=== PATIENT | female | born 1940 | race Caucasian/White ===

== ENCOUNTER 2018-10-27 19:58 | Emergency (ER) | payer OTHER ==
[~2018-10-27] VITALS: Ht 162.6 cm; Wt 85.3 kg
[2018-10-27 20:01] VITALS: Ht 162.6 cm; Wt 85.3 kg
[2018-10-27 22:00] VITALS: BP 131/53
== END 2018-10-27 22:00 | disposition home or self-care (01) ==
LOC: ED 19:58 → EDBD 19:58 → ED 22:00
DX: S09.92XA Unspecified injury of nose, initial encounter (principal); I11.0 Hypertensive heart disease with heart failure; I50.9 Heart failure, unspecified; J45.909 Unspecified asthma, uncomplicated; E78.00 Pure hypercholesterolemia, unspecified; Z95.5 Presence of coronary angioplasty implant and graft; Z95.1 Presence of aortocoronary bypass graft; W01.0XXA Fall on same level from slipping, tripping and stumbling without subsequent striking against object, initial encounter; Y93.89 Activity, other specified; Y92.89 Other specified places as the place of occurrence of the external cause; Y99.8 Other external cause status